=== PATIENT | male | born 1960 | race Caucasian/White ===

== ENCOUNTER 2017-02-27 11:15 | Outpatient (RCR) | payer OTHER ==
[~2017-02-27 11:15] MED LIST: ABIL15TA2 PO; ABIL5TAB5 PO; ACAM0.05 PO; BUSP10TA PO; MINI2CAP PO; NICO14DI3 TD; PROZ40CA PO; TRAZ50TA4 PO; TRAZO50TA PO; campral PO
== END 2017-02-28 ==
LOC: M OT 11:15
PROVIDERS: ATTEND Plastic Surgery Surgery of the Hand
DX: S52.501D Unspecified fracture of the lower end of right radius, subsequent encounter for closed fracture with routine healing (principal); M25.531 Pain in right wrist; X58.XXXD Exposure to other specified factors, subsequent encounter; Y93.9 Activity, unspecified; Y92.9 Unspecified place or not applicable; Y99.8 Other external cause status

== ENCOUNTER 2017-03-12 08:45 | Outpatient (RCR) | payer OTHER ==
[~2017-03-12 08:45] MED LIST changes: -ABIL15TA2 PO; +ABIL1TAB11 PO; +ABIL1TAB12 PO; -ABIL5TAB5 PO; +TRAZ50TA11 PO; -TRAZ50TA4 PO
== END 2017-03-30 ==
LOC: M OT 08:45
PROVIDERS: ATTEND Plastic Surgery Surgery of the Hand
DX: Z51.89 Encounter for other specified aftercare (principal); M25.531 Pain in right wrist

== ENCOUNTER 2017-06-28 09:31 | Outpatient (RCR) | payer OTHER | END 2017-06-30 | LOC: M PT 09:31 | PROVIDERS: ATTEND Orthopaedic Surgery | DX: Z51.89 Encounter for other specified aftercare (principal); M75.41 Impingement syndrome of right shoulder; M75.42 Impingement syndrome of left shoulder ==

== ENCOUNTER 2018-12-11 08:23 | Emergency (ER) | payer OTHER ==
[~2018-12-11] VITALS: Ht 180.3 cm; Wt 88.5 kg
[~2018-12-11 08:23] MED LIST changes: +TRAZ-160 PO; -TRAZ50TA11 PO
[2018-12-11] MEDS ORDERED: GABA-843 (08:35)
--- NOTE | 2018-12-11 09:47 | REP ---
CHEST PA AND LATERAL: 12/11/2018. Comparison: 04/06/2013. Clinical history: Dyspnea. Findings: Lungs are well inflated. Heart, mediastinal and hilar contours are normal. There is no infiltrate, atelectasis or mass. There are a few cuffed bronchi in the perihilar regions that might reflect some reactive airway disease or bronchitis. Aorta and airway intact. Bony thorax unremarkable. No free air. Impression: 1. Some perihilar peribronchial thickening suggesting bronchitis or reactive airway disease. No other finding. No infiltrate or effusion. Electronically Signed by Valentin Billy MD 12/11/2018 09:46 P
[2018-12-11] MEDS ORDERED: VENTAER INH (10:12)
[2018-12-11 10:25] VITALS: BP 107/67
--- NOTE | 2018-12-11 20:54 | ECGEPIP ---
Stationary ECG Study [facility] - ED Test Date: 2018-12-11 Pat Name: ALEXANDREA CARLIN Department: Room: - Gender: M [employer]: : 1960 Requested By: DENISE CARRINGTON PA-C. Order Number: [id number] Reading MD: Yaneli Sung Measurements Intervals [place] Rate: 56 P: 76 NE: 149 QRS: 79 QRSD: 92 T: 71 QT: 379 QTc: 367 Interpretive Statements SINUS BRADYCARDIA PATTERN C/W PULMONARY DISEASE DECREASED RATE 06/09/16 Electronically Signed On 12-11-2018 20:54:25 EDT by Yaneli Sung
== END 2018-12-11 10:32 | disposition home or self-care (01) ==
LOC: M ED 08:23
DX: J44.9 Chronic obstructive pulmonary disease, unspecified (principal); Z72.0 Tobacco use; R00.1 Bradycardia, unspecified; Z79.899 Other long term (current) drug therapy

== ENCOUNTER → 2019-02-21 | Outpatient (CLI) | payer OTHER ==
[~2019-02-21] MED LIST changes: +GABA-843; +VENTAER INH
--- NOTE | 2019-02-21 16:10 | REP ---
Clinical: COPD. Technique: Axial noncontrast images from the thoracic inlet to the upper abdomen with coronal and sagittal re-formations. Findings: Lung estrada are symmetric and hyperinflated with evidence for mild bilateral COPD/emphysematous changes including scattered bullae and chronic bronchiectasis. No acute consolidation, significant nodule or mass lesion. No pleural effusion. No pneumothorax. No adenopathy. Mild atherosclerotic changes to the thoracic aorta and coronary arteries appreciated. No aortic aneurysm. No cardiomegaly or pericardial effusion. Musculoskeletal structures are intact. Impression: Mild COPD and emphysematous changes. Electronically Signed by Moncho Leslie MD 02/21/2019 04:02 P
== END ==
LOC: M RAD 15:25
PROVIDERS: ATTEND Internal Medicine Pulmonary Disease
DX: J44.1 Chronic obstructive pulmonary disease with (acute) exacerbation (principal)

== ENCOUNTER → 2019-09-02 | Outpatient (REF) | payer OTHER, MEDICAID ==
[~2019-09-02] MED LIST changes: -TRAZ-160 PO; +TRAZ-252 PO; +TRAZ1TAB10 PO; -TRAZO50TA PO
[2019-09-02 14:15] LABS: BASO % 0.3 % (0.0-1.0); EOS # 0.3 10^3/uL (0.0-0.5); EOS % 3.4 % (0.0-3.0); HEMATOCRIT 48.3 % (42.0-52.0); HEMOGLOBIN 15.8 g/dl (13.5-17.5); LYMPH # 2.4 10^3/uL (1.5-5.0); LYMPH % 30.4 % (24.0-44.0); MEAN CORPUSCULAR HEMOGLOBIN 30.6 pg (27.0-33.0); MEAN CORPUSCULAR HGB CONC 32.7 g/dl (32.0-36.5); MEAN CORPUSCULAR VOLUME 93.4 fl (80.0-96.0); MONO # 0.4 10^3/uL (0.0-0.8); MONO % 5.3 % (0.0-5.0); NEUTROPHILS # 4.7 10^3/uL (1.5-8.5); NEUTROPHILS % 60.2 % (36.0-66.0); PLATELET COUNT, AUTOMATED 255 10^3/uL (150-450); RED BLOOD COUNT 5.17 10^6/uL (4.30-6.10); WHITE BLOOD COUNT 7.7 10^3/uL (4.0-10.0)
[2019-09-02 14:30] LABS: ALBUMIN 4.2 GM/DL (3.2-5.2); ALT/SGPT 22 U/L (12-78); BILIRUBIN,TOTAL 0.6 MG/DL (0.2-1.0); BLOOD UREA NITROGEN 13 MG/DL (7-18); CALCIUM LEVEL 9.4 MG/DL (8.5-10.1); CARBON DIOXIDE LEVEL 29 MEQ/L (21-32); CHLORIDE LEVEL 101 MEQ/L (98-107); CHOLESTEROL LEVEL 277 MG/DL (<200); CHOLESTEROL RISK RATIO 7.102 (<5); CREATININE FOR GFR 0.82 MG/DL (0.70-1.30); GLOMERULAR FILTRATION RATE > 60.0 (>56); GLUCOSE, FASTING 90 MG/DL (70-100); HDL CHOLESTEROL 39 MG/DL (>40); LDL CHOLESTEROL 194 MG/DL (<100); NON-HDL-C 238 MG/DL; SODIUM LEVEL 138 MEQ/L (136-145); TOTAL PROTEIN 7.6 GM/DL (6.4-8.2); TRIGLYCERIDES LEVEL 219 MG/DL (<150)
[2019-09-02 14:34] LABS: HEMOGLOBIN A1c 5.5 %
== END ==
LOC: M LAB REF 13:46
PROVIDERS: ATTEND Nurse Practitioner Family
DX: Z00.01 Encounter for general adult medical examination with abnormal findings (principal)

== ENCOUNTER → 2020-03-10 | Outpatient (REF) | payer OTHER ==
[2020-03-10 13:20] LABS: ALT/SGPT 22 U/L (12-78); BILIRUBIN,TOTAL 0.5 MG/DL (0.2-1.0); BLOOD UREA NITROGEN 11 MG/DL (7-18); CARBON DIOXIDE LEVEL 27 MEQ/L (21-32); CHLORIDE LEVEL 103 MEQ/L (98-107); CHOLESTEROL LEVEL 275 MG/DL (<200); CREATININE FOR GFR 0.88 MG/DL (0.70-1.30); GLOMERULAR FILTRATION RATE > 60.0 (>56); GLUCOSE, FASTING 94 MG/DL (70-100); HDL CHOLESTEROL 38 MG/DL (>40); POTASSIUM SERUM 4.1 MEQ/L (3.5-5.1); SODIUM LEVEL 138 MEQ/L (136-145); TRIGLYCERIDES LEVEL 170 MG/DL (<150)
[2020-03-10 13:21] LABS: ALBUMIN 4.2 GM/DL (3.2-5.2); CHOLESTEROL RISK RATIO 7.236 (<5); LDL CHOLESTEROL 203 MG/DL (<100); NON-HDL-C 237 MG/DL; TOTAL PROTEIN 7.4 GM/DL (6.4-8.2)
== END ==
LOC: M LAB REF 12:56
PROVIDERS: ATTEND Nurse Practitioner Family
DX: E78.2 Mixed hyperlipidemia (principal)

== ENCOUNTER → 2020-03-17 | Outpatient (CLI) | payer OTHER ==
[~2020-03-17] MED LIST changes: +GABA-282; -GABA-843
--- NOTE | 2020-03-17 10:20 | REP ---
Clinical: Lung screening. History smoking. Comparison: 02/21/2019 Technique: Axial low-dose noncontrast images from the thoracic inlet to the upper abdomen using lung screening technique. Findings: The lung estrada demonstrate mild biapical scarring and mild emphysematous disease. No consolidation, significant nodule or mass lesion is appreciated. No pleural effusion/reaction or pneumothorax. Tracheobronchial tree is patent. Mediastinum demonstrates mild atherosclerotic changes of the coronary arteries without cardiomegaly. Impression: Lung-RADS category I. No nodule or suspicious abnormality. Management recommendations include annual low-dose CT surveillance. Electronically Signed by Moncho Leslie MD 03/17/2020 10:12 A
== END ==
LOC: M RAD 09:49
PROVIDERS: ATTEND Internal Medicine Pulmonary Disease
DX: F17.210 Nicotine dependence, cigarettes, uncomplicated (principal)

== ENCOUNTER → 2020-10-11 | Outpatient (REF) | payer OTHER ==
[2020-10-11 13:20] LABS: ALBUMIN 4.5 GM/DL (3.2-5.2); ALT/SGPT 22 U/L (12-78); BILIRUBIN,TOTAL 0.6 MG/DL (0.2-1.0); BLOOD UREA NITROGEN 21 MG/DL (7-18); CALCIUM LEVEL 9.3 MG/DL (8.8-10.2); CARBON DIOXIDE LEVEL 28 MEQ/L (21-32); CHLORIDE LEVEL 100 MEQ/L (98-107); CHOLESTEROL LEVEL 239 MG/DL (<200); CHOLESTEROL RISK RATIO 4.877 (<5); CREATININE FOR GFR 0.83 MG/DL (0.70-1.30); GLOMERULAR FILTRATION RATE > 60.0 (>49); GLUCOSE, FASTING 83 MG/DL (70-100); HDL CHOLESTEROL 49 MG/DL (>40); LDL CHOLESTEROL 147 MG/DL (<100); NON-HDL-C 190 MG/DL; POTASSIUM SERUM 3.7 MEQ/L (3.5-5.1); SODIUM LEVEL 137 MEQ/L (136-145); THYROID STIMULATING HORMONE 0.897 uIU/ML (0.358-3.740); TOTAL PROTEIN 7.3 GM/DL (6.4-8.2); TRIGLYCERIDES LEVEL 216 MG/DL (<150)
== END ==
LOC: M LAB REF 11:33
PROVIDERS: ATTEND Family Medicine Addiction Medicine
DX: E78.2 Mixed hyperlipidemia (principal)

== ENCOUNTER → 2021-04-18 | Outpatient (CLI) | payer OTHER ==
--- NOTE | 2021-04-18 15:30 | REP ---
INDICATION: NICOTINE DEPEND. COMPARISON: Comparison studies are from March 17, 2020 and February 21, 2019.. TECHNIQUE: Dose reduction was performed utilizing CARE dose with automated adjustment of the kV and MAS according to patient size; iterative reconstruction, automated exposure control, as well as adaptive dose shielding. Helical scanning is acquired and 3 mm axial images are re-formatted at lung windows. FINDINGS: Preliminary digital public health epidemiologist radiograph is unremarkable. There is mild linear fibrosis in the right lower lobe. No pulmonary mass, nodule, or infiltrate is observed. No endobronchial abnormality is seen. Mild vascular calcification is seen. IMPRESSION: Lung RADS category 1 findings. Repeat screening exam recommended in 1 year. <Electronically signed by Jimenez Fishman > 04/18/21 [id number]
== END ==
LOC: M RAD 13:01
PROVIDERS: ATTEND Internal Medicine Pulmonary Disease
DX: Z12.2 Encounter for screening for malignant neoplasm of respiratory organs (principal); F17.218 Nicotine dependence, cigarettes, with other nicotine-induced disorders; J84.10 Pulmonary fibrosis, unspecified

== ENCOUNTER → 2022-07-27 | Outpatient (REF) | payer OTHER ==
[2022-07-27 15:22] LABS: CHOLESTEROL RISK RATIO 5.533 (<5)
== END ==
LOC: M LAB REF 12:41
PROVIDERS: ATTEND Family Medicine Addiction Medicine
DX: E78.2 Mixed hyperlipidemia (principal)

== ENCOUNTER → 2023-01-25 | Outpatient (REF) | payer OTHER ==
[2023-01-25 14:13] LABS: THYROID STIMULATING HORMONE 1.047 uIU/ML (0.55-4.78)
[2023-01-25 14:14] LABS: ALBUMIN 4.1 G/DL (3.2-5.2); ALKALINE PHOSPHATASE 84 U/L (46-116); ALT/SGPT 11 U/L (7.0-40); AST/SGOT 15 U/L (<34); BILIRUBIN,TOTAL 0.6 MG/DL (0.3-1.2); BLOOD UREA NITROGEN 13 MG/DL (9-23); CALCIUM LEVEL 9.2 MG/DL (8.3-10.6); CARBON DIOXIDE LEVEL 31 MMOL/L (20-31); CHLORIDE LEVEL 103 MMOL/L (98-107); CHOLESTEROL LEVEL 194 MG/DL (<200); CHOLESTEROL RISK RATIO 4.51 (<5); CREATININE FOR GFR 0.78 MG/DL (0.70-1.30); GLOMERULAR FILTRATION RATE > 60.0 (>49); GLUCOSE, FASTING 77 MG/DL (74-106); POTASSIUM SERUM 4.2 MMOL/L (3.5-5.1); SODIUM LEVEL 140 MMOL/L (136-145); TOTAL PROTEIN 6.8 G/DL (5.7-8.2); TRIGLYCERIDES LEVEL 135 MG/DL (<150)
== END ==
LOC: M LAB REF 12:48
PROVIDERS: ATTEND Family Medicine Addiction Medicine
DX: E78.5 Hyperlipidemia, unspecified (principal)

== ENCOUNTER → 2023-06-05 | Outpatient (CLI) | payer OTHER | LOC: M RAD 08:25 | PROVIDERS: ATTEND Internal Medicine Pulmonary Disease | DX: Z12.2 Encounter for screening for malignant neoplasm of respiratory organs (principal); F17.218 Nicotine dependence, cigarettes, with other nicotine-induced disorders ==

== ENCOUNTER → 2023-06-12 | Outpatient (REF) | payer OTHER | LOC: M LAB REF 11:49 | PROVIDERS: ATTEND Family Medicine Addiction Medicine | DX: R35.1 Nocturia (principal) ==

== ENCOUNTER → 2023-12-13 | Outpatient (REF) | payer OTHER ==
[2023-12-13 13:38] LABS: ALBUMIN 4.5 G/DL (3.2-5.2); ALKALINE PHOSPHATASE 86 U/L (46-116); ALT/SGPT 13 U/L (7.0-40); AST/SGOT 11 U/L (<34); BILIRUBIN,TOTAL 0.7 MG/DL (0.3-1.2); BLOOD UREA NITROGEN 15 MG/DL (9-23); CALCIUM LEVEL 9.4 MG/DL (8.3-10.6); CARBON DIOXIDE LEVEL 31 MMOL/L (20-31); CHLORIDE LEVEL 104 MMOL/L (98-107); CHOLESTEROL LEVEL 192 MG/DL (<200); CHOLESTEROL RISK RATIO 4.54 (<5); GLOMERULAR FILTRATION RATE > 60.0 (>49); GLUCOSE, FASTING 82 MG/DL (74-106); HDL CHOLESTEROL 42.2 MG/DL (>40); LDL CHOLESTEROL 127.4 MG/DL (<100); NON-HDL-C 149.8 MG/DL; POTASSIUM SERUM 4.2 MMOL/L (3.5-5.1); SODIUM LEVEL 141 MMOL/L (136-145); THYROID STIMULATING HORMONE 1.443 uIU/ML (0.55-4.78); TOTAL PROTEIN 6.8 G/DL (5.7-8.2); TRIGLYCERIDES LEVEL 112 MG/DL (<150)
== END ==
LOC: M LAB REF 12:25
PROVIDERS: ATTEND Family Medicine Addiction Medicine
DX: E78.2 Mixed hyperlipidemia (principal)

== ENCOUNTER → 2024-07-18 | Outpatient (CLI) | payer OTHER ==
[~2024-07-18] MED LIST changes: +GABA-1172; -GABA-282
== END ==
LOC: M RAD 07:55
PROVIDERS: ATTEND Internal Medicine Pulmonary Disease
DX: Z12.2 Encounter for screening for malignant neoplasm of respiratory organs (principal); F17.218 Nicotine dependence, cigarettes, with other nicotine-induced disorders; J43.9 Emphysema, unspecified; J47.9 Bronchiectasis, uncomplicated

== ENCOUNTER → 2024-08-04 | Outpatient (REF) | payer OTHER ==
[2024-08-04 14:04] LABS: PSA SCREENING 3.27 NG/ML (< 4.00)
[2024-08-04 14:07] LABS: ALBUMIN 4.1 G/DL (3.2-5.2); ALKALINE PHOSPHATASE 82 U/L (40-129); ALT/SGPT 12 U/L (7.0-40); AST/SGOT 9 U/L (<34); BILIRUBIN,TOTAL 0.4 MG/DL (0.3-1.2); BLOOD UREA NITROGEN 15 MG/DL (9-23); CALCIUM LEVEL 9.9 MG/DL (8.3-10.6); CARBON DIOXIDE LEVEL 30 MMOL/L (20-31); CHLORIDE LEVEL 103 MMOL/L (98-107); CHOLESTEROL LEVEL 196 MG/DL (<200); CHOLESTEROL RISK RATIO 3.61 (<5); CREATININE FOR GFR 0.74 MG/DL (0.70-1.30); GLOMERULAR FILTRATION RATE > 60.0 (>49); GLUCOSE, FASTING 88 MG/DL (74-106); HDL CHOLESTEROL 54.2 MG/DL (>40); NON-HDL-C 141.8 MG/DL; POTASSIUM SERUM 4.4 MMOL/L (3.5-5.1); SODIUM LEVEL 141 MMOL/L (136-145); TRIGLYCERIDES LEVEL 89 MG/DL (<150)
[2024-08-04 14:08] LABS: THYROID STIMULATING HORMONE 0.793 uIU/ML (0.55-4.78)
== END ==
LOC: M LAB REF 13:03
PROVIDERS: ATTEND Family Medicine Addiction Medicine
DX: E78.2 Mixed hyperlipidemia (principal); Z12.5 Encounter for screening for malignant neoplasm of prostate

== ENCOUNTER 2024-09-28 08:47 | Emergency (ER) | payer OTHER ==
[~2024-09-28] VITALS: Ht 180.3 cm; Wt 65.1 kg
[2024-09-28] MEDS: IPRATROPIUM 0.5MG/ALBUTEROL 2.5MG INH SOL UD 3ML (DUONEB) NEB ONE (10:45)
[2024-09-28] MEDS ORDERED: VENTAER INH (11:08)
[2024-09-28] MEDS ORDERED: PRED10TA2 PO (11:08)
[2024-09-28 11:14] VITALS: BP 104/59; TEMP 96.4; O2SAT 95
== END 2024-09-28 11:37 | disposition home or self-care (01) ==
LOC: M ED 08:47
DX: J44.0 Chronic obstructive pulmonary disease with (acute) lower respiratory infection (principal); F17.200 Nicotine dependence, unspecified, uncomplicated; Z79.899 Other long term (current) drug therapy

== ENCOUNTER → 2025-04-17 | Outpatient (CLI) | payer OTHER ==
[~2025-04-17] MED LIST changes: +PRED10TA2 PO
== END ==
LOC: M RAD 15:49
PROVIDERS: ATTEND Physician Assistant
DX: S99.911A Unspecified injury of right ankle, initial encounter (principal); Y93.9 Activity, unspecified; Y92.9 Unspecified place or not applicable

== ENCOUNTER → 2025-06-17 | Outpatient (REF) | payer OTHER ==
[2025-06-17 15:55] LABS: BASO # 0.0 10^3/uL (0.0-0.2); BASO % 0.4 % (0.0-1.0); EOS # 0.2 10^3/uL (0.0-0.5); EOS % 3.6 % (0.0-3.0); LYMPH # 2.5 10^3/uL (1.5-5.0); LYMPH % 37.3 % (24.0-44.0); MONO # 0.4 10^3/uL (0.0-0.8); MONO % 5.2 % (2.0-8.0); NEUTROPHILS # 3.6 10^3/uL (1.5-8.5); NEUTROPHILS % 53.4 % (36.0-66.0); PLATELET COUNT, AUTOMATED 214 10^3/uL (150-450)
[2025-06-17 16:01] LABS: ALT/SGPT 15 U/L (7.0-40); AST/SGOT 19 U/L (<34); CALCIUM LEVEL 9.1 MG/DL (8.3-10.6); CARBON DIOXIDE LEVEL 28 MMOL/L (20-31); CHLORIDE LEVEL 102 MMOL/L (98-107); CREATININE FOR GFR 0.77 MG/DL (0.70-1.30); GLOMERULAR FILTRATION RATE > 90.0 (>49); POTASSIUM SERUM 4.3 MMOL/L (3.5-5.1); SODIUM LEVEL 138 MMOL/L (136-145)
== END ==
LOC: M LAB REF 14:55
PROVIDERS: ATTEND Family Medicine Addiction Medicine
DX: R10.11 Right upper quadrant pain (principal)

== ENCOUNTER → 2025-07-06 | Outpatient (CLI) | payer OTHER | LOC: M RAD 07:28 | PROVIDERS: ATTEND Family Medicine Addiction Medicine | DX: R10.11 Right upper quadrant pain (principal) ==

== ENCOUNTER → 2025-09-09 | Outpatient (REF) | payer OTHER ==
[2025-09-09 15:42] LABS: ALT/SGPT 12 U/L (7.0-40); AST/SGOT 16 U/L (<34); CALCIUM LEVEL 9.1 MG/DL (8.3-10.6); CARBON DIOXIDE LEVEL 29 MMOL/L (20-31); CHLORIDE LEVEL 103 MMOL/L (98-107); CHOLESTEROL LEVEL 167 MG/DL (<200); CHOLESTEROL RISK RATIO 3.38 (<5); CREATININE FOR GFR 0.76 MG/DL (0.70-1.30); GLOMERULAR FILTRATION RATE > 90.0 (>49); LDL CHOLESTEROL 84.0 MG/DL (<100); NON-HDL-C 117.6 MG/DL; POTASSIUM SERUM 4.1 MMOL/L (3.5-5.1); SODIUM LEVEL 140 MMOL/L (136-145); TRIGLYCERIDES LEVEL 168 MG/DL (<150)
== END ==
LOC: M LAB REF 14:36
PROVIDERS: ATTEND Family Medicine Addiction Medicine
DX: E78.2 Mixed hyperlipidemia (principal)